=== PATIENT | female | born 1990 | race Caucasian/White ===

== ENCOUNTER → 2020-04-26 09:29 | Outpatient (BNVA) | payer OTHER, SELFPAY | PROVIDERS: Visit Provider Advanced Practice Midwife | DX: Z76.89 Persons encountering health services in other specified circumstances (principal) ==

== ENCOUNTER → 2020-05-27 08:32 | Outpatient (BNVA) | payer OTHER, SELFPAY | PROVIDERS: Visit Provider Advanced Practice Midwife | DX: Z76.89 Persons encountering health services in other specified circumstances (principal) ==

== ENCOUNTER 2021-08-30 10:46 | Outpatient (REF) | payer OTHER, SELFPAY ==
[2021-08-30 11:19] LABS: Binax Internal Control QC Valid; Binax Now Covid-19 Ag Negative (Negative); Binax Performed by: HO.BONILM
== END 2021-08-30 10:47 | disposition home or self-care (01) ==
LOC: HO.HMGCLDS 10:46
PROVIDERS: PCP Internal Medicine; Visit Provider Physician Assistant Medical
DX: Z13.89 Encounter for screening for other disorder (principal)

== ENCOUNTER 2022-01-09 11:54 | Outpatient (REF) | payer OTHER, SELFPAY ==
[2022-01-15 03:36] LABS: HPV mRNA E6/E7 rflx Not Detected (Not Detected)
== END 2022-01-09 11:55 | disposition home or self-care (01) ==
LOC: HO.LAB 11:54
PROVIDERS: Visit Provider Advanced Practice Midwife
DX: Z01.419 Encounter for gynecological examination (general) (routine) without abnormal findings (principal); Z11.51 Encounter for screening for human papillomavirus (HPV)
CPT/HCPCS: 87624; 88142

== ENCOUNTER 2023-01-15 11:18 | Outpatient (AMB) | payer OTHER, SELFPAY ==
--- NOTE | 2023-01-15 11:20 | A.OFFVIS_ITS ---
Intake Vital Signs 01/15/23 11:25 Height 5 ft 9 in Weight 250 lb BMI 36.9 BP 118/76 Intake Visit Reasons: Annual Intake Note: no concerns The patient agreed to use of a medical technologist during this encounter. Scribed for SANDRA Perez by Iris Ervin medical technologist, on 01/15/2023 at 11:37 am EST. Surgical Forceps Fabricator Required: No Information Interpreted: non-clinical & clinical Filer Metal Patterns: Filer Metal Patterns Present (Ericka RODRIGUEZ) Accompanied by: Self / Same As Patient Allergies sulfa Allergy (Unknown, Verified 01/15/23 11:26) rash/wheezing Is last menstrual period known: Yes Last menstrual period: 12/26/22 HPI HPI Comments History of Present Illness Details She is a premenopausal woman presenting for annual exam. Reports h/o HS over arms, breast and between thigh and believes its worse due to the heat, and has seen a Technical Document Writer for this in the past. She admits to eating healthy and tries to stay active with exercise. Currently sexually active. Uses Nuva Ring for BC and is doing well. Denies vaginal itching and irritation. Denies family hx of breast, colon and ovarian cancer. Last pap smear 01/13/22. She denies any contraindications to control such as: migraines with aura, history of DVT or pulmonary emboli, high blood pressure, liver disease, thrombolic disorders, Lupus, +OSCAR, or smoking. Reviewed use, side effects and warnings including ACHES. 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 Sexual orientation: Straight/Heterosexual Gender identity: Female Female Reproductive History Menstrual Age of Menarche: 12 Date of last menstrual period: 12/26/22 control method: vaginal ring Total pregnancies: 0 Date of last pap smear: 01/13/22 Physical Exam Vital Signs: Last Vital Signs BP 118/76 01/15/23 11:25 BMI result Body Mass Index 36.9 Const General: cooperative, healthy appearing, no acute distress, well developed and alert Orientation/consciousness: patient oriented x3 HEENT Head: Yes normal to inspection Eyes General: appearance normal, both eyes and all related structures Neck Neck: Yes normal visual inspection Thyroid: Thyroid normal Chest Chest palpation & inspection: normal inspection of the chest Breast/axilla inspection: normal inspection of the breasts (no puckering, dimpling, peau de orange, retraction, discharge, masses) Breast/axilla palpation: normal palpation of the breasts Resp Effort & Inspection: normal respiratory effort GI Inspection: Yes normal to inspection Palpation (GI): Soft to palpation (to palpation) Rectal Exam - Female: deferred General: Yes bladder normal to inspection External Female Exam: normal external appearance and normal appearance of the urethra Speculum Exam - Vagina: normal appearance of the vagina, normal palpation and normal vaginal discharge Speculum Exam - Cervix: normal appearance of the cervix and normal palpation Bimanual exam- vagina & uterus: normal palpation and normal palpation Bimanual Exam- Adnexa, other: normal adnexae and no masses Skin Other: H/O HS under breast, groin, under arms and vulva; healing well. General skin exam: no rashes or lesions noted Neuro General: patient oriented x3 Cognition (Neuro): normal cognition Extrem General: Yes normal to inspection Psych Attitude: cooperative Thought process: Normal thought process present Assessment & Plan Assessment & Plan (1) Well woman exam with routine gynecological exam: Code(s): Z01.419 - Encounter for gynecological examination (general) (routine) without abnormal findings Plan: Discussed: Current recommendations for pap smears per ASCCP guidelines Breast awareness and periodic self breast exams. Maintaining a healthy lifestyle including a well balanced diet and routine exercise. Encouraged patient to sign up for patient portal. Advised to clean area with antimicrobial soap, keep dry, wear cotton area and keep cool. Warnings: go to ER if and loss of vision/blindness, severe headache, chest pain or difficulty breathing, severe abdominal pain, or any pain or swelling in an extremity. All of her questions and concerns were addressed to the best of my ability. RTO in one year for AG. Medications: Refilled etonogestrel-ethinyl estradiol 0.12-0.015 mg/24 hr 1 vag ring vaginal Q4W 3 ea 4RF Z78.9 - Other specified health status Coding Level of Care Code Est Pt Prev Care 18-39y(45666) Diagnoses Well woman exam with routine gynecological exam Z01.419
[2023-01-15 11:25] VITALS: BP 118/76; BMI 36.9
== END 2023-01-15 11:53 | disposition home or self-care (01) ==
LOC: HO.HWS 11:18
PROVIDERS: PCP Internal Medicine; Visit Provider Advanced Practice Midwife
DX: Z01.419 Encounter for gynecological examination (general) (routine) without abnormal findings (principal)
CPT/HCPCS: 99395

== ENCOUNTER → 2023-01-15 11:18 | Outpatient (BNVA) | payer OTHER, SELFPAY | PROVIDERS: PCP Internal Medicine; Visit Provider Advanced Practice Midwife ==

== ENCOUNTER 2025-04-02 15:46 | Outpatient (REF) | payer BC, SELFPAY ==
[2025-04-02 17:50] LABS: Alanine Aminotransferase 17 U/L (0-31); Aspartate Amino Transferase 21 U/L (5-31); Triglycerides 87 mg/dL (<150)
--- OUTSIDE RECORDS SUMMARY | 2025-04-02 18:47 | XMS_ITS ---
Author Name [facility] Organization Unknown Care Team Organization Name Specialty Phone Email Start Date End [facility] te [facility] 03/12/2025 [facility] 03/12/2025
== END 2025-04-02 15:47 | disposition home or self-care (01) ==
LOC: HO.LABR 15:46
PROVIDERS: PCP Internal Medicine; Visit Provider Dermatology
DX: L70.0 Acne vulgaris (principal)
CPT/HCPCS: 36415; 84450; 84460; 84478

== ENCOUNTER 2025-04-12 13:57 | Outpatient (AMB) | payer BC, SELFPAY ==
--- NOTE | 2025-04-12 14:00 | MHC.OFFVIS ---
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 no concerns Production Machine Computer Operator Required: No Information Interpreted: non-clinical & clinical Senior Information Security Consultant: Senior Information Security Consultant Present (Dianne) Accompanied by: Self / Same As Patient Allergies sulfa Allergy (Unknown, Verified 04/12/25 14:04) rash/wheezing Medication List - Last Reconciled 04/12/25 by Genevieve Toney LPN doxycycline hyclate 100 mg PO BID etonogestrel-ethinyl estradiol 0.12-0.015 mg/24 hr 1 vag ring vaginal Q4W Is last menstrual period known: Yes Last menstrual period: 03/27/25 Do you need a note to return to daycare/school/sports/work: No HPI Comments Details: Patient is a premenopausal woman presenting for annual examination. Jd Edwards Consultant concerns: none. Nuvaring user. She denies any contraindications to control such as: migraines with aura, history of DVT or pulmonary emboli, high blood pressure, liver disease, thrombolic disorders, Lupus, +OSCAR, breast cancer, or smoking. Currently is sexually active. She denies vaginal itching or irritation. STI screening offered; she declined. She tries to eat healthy and stays active with exercise-walks. Denies family history of breast, ovarian or colon cancer. Last pap smear 2021, negative. 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 Sexual orientation: Straight/Heterosexual Gender identity: Female Female Reproductive History Menstrual Age of Menarche: 12 Date of last menstrual period: 03/27/25 control method: vaginal ring Total pregnancies: 0 Number of Living Children: 0 Date of last pap smear: 01/13/22 History of abnormal pap smear: No Review of Systems Const All systems reviewed & are unremarkable except as noted in HPI and below Reports as per HPI Eyes Reports no additional complaints ENT Reports no additional complaints Card Reports no additional complaints Resp Reports no additional complaints GI Reports as per HPI and Reports no additional complaints Reports as per HPI Musc Reports no additional complaints Skin/Breast Reports as per HPI Neuro Reports no additional complaints Psych Reports no additional complaints Endo Reports no additional complaints Liam/Lymph Reports no additional complaints Aller/Immun Reports no additional complaints Physical Exam Vital Signs: Last Vital Signs BP 122/82 04/12/25 14:08 BMI result Body Mass Index 35.7 Const General: cooperative, healthy appearing, no acute distress, well developed and alert Orientation/consciousness: patient oriented x3 HEENT Head: Yes normal to inspection Eyes General: appearance normal, both eyes and all related structures Neck Neck: Yes normal visual inspection Thyroid: Thyroid normal Chest Chest palpation & inspection: normal inspection of the chest and other (no puckering, dimpling, peau de orange, retraction, discharge, masses) Breast/axilla inspection: normal inspection of the breasts Breast/axilla palpation: normal palpation of the breasts Resp Effort & Inspection: normal respiratory effort GI Inspection: Yes normal to inspection Palpation (GI): Soft to palpation Rectal Exam - Female: deferred General: Yes bladder normal to palpation External Female Exam: normal external appearance and normal appearance of the urethra Speculum Exam - Vagina: normal appearance of the vagina, normal palpation, normal vaginal discharge and other (NuvaRing in place) Speculum Exam - Cervix: normal appearance of the cervix and normal palpation Bimanual exam- vagina & uterus: normal bimanual exam, normal palpation, uterine size normal, bladder normal to palpation, normal palpation and non-tender Bimanual Exam- Adnexa, other: no masses Skin General skin exam: no rashes or lesions noted Lesions: other (HS) Rashes: no rashes Neuro General: patient oriented x3 Cognition (Neuro): normal cognition Extrem General: Yes normal to inspection Psych Attitude: cooperative Thought process: Normal thought process present Assessment & Plan Assessment & Plan (1) Well woman exam with routine gynecological exam: Code(s): Z01.419 - Encounter for gynecological examination (general) (routine) without abnormal findings Category: Medical Plan Discussed: Current recommendations for pap smears per ASCCP guidelines. Breast awareness and periodic breast exams. Maintain a healthy lifestyle including a well balanced diet and routine exercise. control hormone use warnings: go to ER if and loss of vision, blindness, severe headache, chest pain or difficulty breathing, severe abdominal pain, or any pain or swelling in an extremity. Discussed Mirena IUD for efficacy with the use of Accutane, booklet provided for review. Advised if planning to have an IUD inserted she can have something to eat and drink and take 3 Advil 1 hour before insertion time. Insert week of menses. Patient verbalizes understanding and agrees to the plan of care. She was given opportunity to ask questions and all questions were answered to the best of my ability. RTO in one year for annual newsagent examination. This note is constructed using voice recognition software. While every effort has been made to ensure accuracy, order analyst errors may have been included. Medications: Refilled etonogestrel-ethinyl estradiol 0.12-0.015 mg/24 hr wear for 3 wk, then leave out for one week and then restart a new ring 1 vag ring vaginal Q4W 3 ea 4RF Z78.9 - Other specified health status Coding Level of Care Code Est Pt Prev Care 18-39y(36065) Diagnoses Well woman exam with routine gynecological exam Z01.419
[2025-04-12 14:08] VITALS: BP 122/82; BMI 35.7
== END 2025-04-12 14:34 | disposition home or self-care (01) ==
LOC: HO.HWS 13:57
PROVIDERS: PCP Internal Medicine; Visit Provider Advanced Practice Midwife
DX: Z01.419 Encounter for gynecological examination (general) (routine) without abnormal findings (principal)
CPT/HCPCS: 99395; 99459

== ENCOUNTER 2025-05-21 09:00 | Outpatient (REF) | payer BC, SELFPAY ==
[2025-05-22 08:56] LABS: UPreg QC Valid YES
== END 2025-05-21 09:01 | disposition home or self-care (01) ==
LOC: HO.LAB 09:00
PROVIDERS: Visit Provider Dermatology
DX: L70.0 Acne vulgaris (principal)
CPT/HCPCS: 81025